=== PATIENT | male | born 1985 | race Caucasian/White ===

== ENCOUNTER 2025-05-29 09:00 | Outpatient (AMB) | payer OTHER, SELFPAY ==
--- NOTE | 2025-05-29 09:06 | MHC.PC.OV ---
Vital Signs 05/29/25 09:13 Height 5 ft 10 in Weight 176 lb 9 oz BMI 25.3 BP 114/64 Blood Pressure Location Rt brachial Position Sitting Pulse 69 Pulse Source Pulse Oximeter Temp 96.9 F Temp Source Temporal Artery Scan Pulse Oximetry (%) 98 Oxygen Delivery Method Room Air Intake Visit Reasons: DIRECTOR OF STRATEGIC INITIATIVES-PE Intake Note: Chucho presents in the office today to establish care. Allergies No Known Allergies Allergy (Verified 05/29/25 09:09) Medication List - Last Reconciled 05/29/25 by Angie Dunham PA-C No Known Home Meds Tobacco use date assessed: 05/29/25 Dental Screening Dental Screen Date: 05/29/25 Did you have a dental visit in the last 12 months?: Yes Did you have a dental problem in the last 6 months where you did not have access to dental care?: No Was dental information given to patient?: Patient has dentist HPI DIRECTOR OF STRATEGIC INITIATIVES-PE HPI Details Patient is a 40-year-old male who presents today to establish care. He does report a significant past medical history of anxiety, depression, ADHD. CV: Blood pressure today in the office is 114/64. Pysch: He states that in the past he was following with a psychologist for his anxiety, depression, ADHD, SI and irritability and was prescribed clonidine. States that the clonidine caused dry mouth a stopped taking it months ago. Denies any improvement of his symptoms with this medication. He states in childhood he was on other medications which he can not recall the name of. States in the last few years has been an increase in stress as he has 3 children under the age of 3 and work can be stressful. He also quit drinking 4-5 years ago. States that he was drinking up to 20 beers a night. He states that he does not currently have any SI and he has never act on this before but he would like treatment for his depression and anxiety. He states that he feels quick to be irritable and states that he gets angry easily and sometimes will even throw things. He just wants to feel more in control of his emotions. He has tried Adderall from his brother which was making him feel a little worse. He states that it caused him to have more energy than he already does. He states that he will go to work and then come home and want to go for a hike or do something that causes a lot of exertion. Denies any hospitalizations Derm: He does report today that he has toenail fungus that has been there for quite some time. He states that he would like to see someone about treating this. He has tried apple cider vinegar trigger, bleach and topicals without any significant improvement. [facility] Medical History (Updated 05/29/25 @ 12:04 by Angie Dunham PA-C) History of alcohol abuse Tinea versicolor Depression Anxiety Family History (Updated 05/29/25 @ 09:12 by Jayshree Ramirez MA) Father FHx: mental illness Bipolar 1 disorder Social History (Updated 05/29/25 @ 09:13 by Jayshree Ramirez MA) Housing: House Alcohol intake: former Patient Tobacco Use Status: Never used Tobacco e-Cigarette/Vaping Use: Currently Using Second Hand Smoke Exposure: No Substance Use Type: Marijuana service: No Current occupational status: employed Current occupation: IT Current occupational exposures/hazards: Yes Cognitive needs: No Hearing needs: No Vision needs: No Questionnaire PHQ-9 Over the last 2 weeks, how often have you been bothered by any of the following problems? 1. Little interest or pleasure in doing things: not at all 2. Feeling down, depressed, or hopeless: not at all 3. Trouble falling or staying asleep, or sleeping too much: not at all 4. Feeling tired or having little energy: not at all 5. Poor appetite or overeating: not at all 6. Feeling bad about yourself - or that you are a failure or have let yourself or your family down: not at all 7. Trouble concentrating on things, such as reading the newspaper or watching television: nearly every day 8. Moving or speaking so slowly that other people could have noticed. Or the opposite - being so fidgety or restless that you have been moving around a lot more than usual: nearly every day 9. Thoughts that you would be better off or of hurting yourself in some way: not at all Total score: 6 Depression Screening Interpretation: Positive Depression Screening Follow-up: Existing condition, New Medication prescribed, Community Mental Health Worker F/U and Follow-up Visit Requested Depression Screening Done: Yes 35157 - PHQ-9 Billing: Yes Source: Developed by Drs. Chris Jerry, MiryamYosvany Albright and colleagues, with an educational desmond from [employer]. Thrive Questionnaire Date Thrive assessed: 05/29/25 I am a: Patient What is your living situation today?: I have a steady place to live Within the past 12 months, did the food you bought not last and you didn't have the money to get more?: I choose not to answer this question Within the past 12 months, did you worry whether your food would run out before you got money to buy more?: Never true Do you have trouble paying for medicines?: I choose not to answer this question Do you have trouble getting transportation to medical appointments?: No Do you have trouble paying your heating and electricity bill?: I choose not to answer this question Do you have trouble taking care of your child, family member or friend?: No Do you have trouble with day-to-day activities such as bathing, preparing meals, shopping, managing finances, etc.?: No Are you currently unemployed and looking for a job?: No Are you interested in more education?: I choose not to answer this question Please select the resources that you would like help with: None Currently or been in a relationship where the following occur: No concerns reported THRIVE Score: 0 AUDIT C Alcohol Use Questionnaire (AUDIT-C) 1. How often do you have a drink containing alcohol?: Never 3. How often do you have six or more drinks on one occasion?: Never Total Score: 0 JAVON-7 AMB Questionnaire JAVON-7 Date JAVON - 7 assessed: 05/29/25 Feeling nervous, anxious, or on edge: 2 = More than half the days Not being able to stop or control worryin = Not at all Worrying too much about different things: 0 = Not at all Trouble relaxin = Nearly every day Being so restless that it is hard to sit still: 3 = Nearly every day Becoming easily annoyed or irritable: 3 = Nearly every day Feeling afraid as if something awful might happen: 2 = More than half the days Total JAVON-7 score (0-4 normal; 5-9 mild; 10-14 moderate; 15-21 severe): 13 Source: Developed by Miryam Murillo Kurt Kroenke and colleagues, with an educational desmond from [employer]. JAVON-7 Assessment Billing JAVON-7 Assessment Tool: JAVON-7 Assessment 23012 Physical exam (Primary Care) Vital Signs: Last Vital Signs Temp 96.9 F 05/29/25 09:13 Pulse 69 05/29/25 09:13 BP 114/64 05/29/25 09:13 Pulse Ox 98 05/29/25 09:13 Oxygen Delivery Method Room Air 05/29/25 09:13 BMI result Body Mass Index 25.3 Tobacco/Smoking Status: Tobacco use Status Tobacco use date assessed 05/29/25 05/29/25 09:17 Patient Tobacco Use Status Never used Tobacco 05/29/25 09:17 e-Cigarette/Vaping Use Currently Using 05/29/25 09:17 PHQ-9: PHQ-9 Score PHQ-9: Total score 6 05/29/25 09:24 Depression Screening Interpretation: Positive Depression Screening Follow-up: Existing condition, New Medication prescribed, Community Mental Health Worker F/U and Follow-up Visit Requested Thrive Assessment: Date of Thrive Assessment Date Thrive assessed 05/29/25 05/29/25 09:17 Currently or been in a relationship where the following occur: No concerns reported Const Orientation/consciousness: patient oriented x3 HENMT Ears: hearing grossly normal bilaterally Neck Thyroid: Thyroid normal Lymphatic: no lymphadenopathy noted Resp Auscultation: clear to auscultation bilaterally Cardio Rate: regular rate Rhythm: regular rhythm Heart sounds: S1 normal heart sound present and S2 normal heart sound present GI Inspection: Yes normal to inspection Palpation (GI): Soft to palpation and Other GI palpation findings present (nontender, no cva tenderness) Auscultation: normoactive bowel sounds Rectal Exam - Male: Yes deferred Skin General skin exam: no rashes or lesions noted Neuro General: patient oriented x3, gait normal and no focal motor deficits Coding Level of Care Code New Pt Level 4 (34106) Complex EM visit Add On G2211 Diagnoses Major depression, recurrent, chronic F33.9 Irritability R45.4 Generalized anxiety disorder F41.1 ADHD F90.9 Onychomycosis B35.1 Additional Codes JAVON-7 Assessment Billing - JAVON-7 Assessment Tool: JAVON-7 Assessment 61617 ([id number]) PHQ-9 - 35138 - PHQ-9 Billing: Yes ([id number]) Assessment & Plan Assessment & Plan (1) Major depression, recurrent, chronic: Code(s): F33.9 - Major depressive disorder, recurrent, unspecified Category: Medical Plan: We will try Wellbutrin. We discussed risks and benefits and adverse effects of the medications at length. Advised to seek emergent medical treatment should he develop any SI/HI. If he develops any worsening symptoms advised him to seek emergent medical treatment or contact us. I have referred him to Psychiatry and Behavioral Health. Labs have been ordered. We will follow up pending test results. (2) Irritability: Code(s): R45.4 - Irritability and anger Category: Medical Plan: As above (3) Generalized anxiety disorder: Code(s): F41.1 - Generalized anxiety disorder Category: Medical Plan: As above (4) ADHD: Code(s): F90.9 - Attention-deficit hyperactivity disorder, unspecified type Category: Medical Plan: Tried Adderall in the past with adverse effects (5) Onychomycosis: Code(s): B35.1 - Tinea unguium Category: Medical Plan: Penlac solution ordered. Referral to derm Orders: Orders Comprehensive [place]. Panel Fast Today F33.3 - Major depressive disorder, recurrent, severe with psychotic symptoms, F41.1 - Generalized anxiety disorder, F90.9 - Attention-deficit hyperactivity disorder, unspecified type, R45.4 - Irritability and anger Lipid Panel Today F33.3 - Major depressive disorder, recurrent, severe with psychotic symptoms, F41.1 - Generalized anxiety disorder, F90.9 - Attention-deficit hyperactivity disorder, unspecified type, R45.4 - Irritability and anger Vitamin B12 and Folate Today F33.3 - Major depressive disorder, recurrent, severe with psychotic symptoms, F41.1 - Generalized anxiety disorder, F90.9 - Attention-deficit hyperactivity disorder, unspecified type, R45.4 - Irritability and anger Microalbumin, Random (w Creat) Today F33.3 - Major depressive disorder, recurrent, severe with psychotic symptoms, F41.1 - Generalized anxiety disorder, F90.9 - Attention-deficit hyperactivity disorder, unspecified type, R45.4 - Irritability and anger Complete Blood Count Auto Diff Today F33.3 - Major depressive disorder, recurrent, severe with psychotic symptoms, F41.1 - Generalized anxiety disorder, F90.9 - Attention-deficit hyperactivity disorder, unspecified type, R45.4 - Irritability and anger TSH reflex Free T4 Today F33.3 - Major depressive disorder, recurrent, severe with psychotic symptoms, F41.1 - Generalized anxiety disorder, F90.9 - Attention-deficit hyperactivity disorder, unspecified type, R45.4 - Irritability and anger UA CC w/rflx Micro + Cult Today F33.3 - Major depressive disorder, recurrent, severe with psychotic symptoms, F41.1 - Generalized anxiety disorder, F90.9 - Attention-deficit hyperactivity disorder, unspecified type, R45.4 - Irritability and anger, Z13.220 - Encounter for screening for lipoid disorders Prostate Specific Antigen Scr Today Z01.89 - Encounter for other specified special examinations Referrals Behavioral Health Referral F33.3 - Major depressive disorder, recurrent, severe with psychotic symptoms, F41.1 - Generalized anxiety disorder, F90.9 - Attention-deficit hyperactivity disorder, unspecified type, R45.4 - Irritability and anger Psychiatry Referral F33.3 - Major depressive disorder, recurrent, severe with psychotic symptoms, F41.1 - Generalized anxiety disorder, F90.9 - Attention-deficit hyperactivity disorder, unspecified type, R45.4 - Irritability and anger Dermatology Referral B35.1 - Tinea unguium Medications: New ciclopirox 8% 1 appl topical BEDTIME 6.6 mL 3RF 4 weeks bupropion HCl XL (Wellbutrin XL) 150 mg PO QAM 30 tabs 3RF
[2025-05-29 09:13] VITALS: BP 114/64; PULSE 69; TEMP 36.1; O2SAT 98; BMI 25.3
--- OUTSIDE RECORDS SUMMARY | 2025-05-29 09:22 | XMS_ITS ---
Author Name [facility] Organization Unknown Care Team Organization Name Specialty Phone Email Start Date End Da te [facility] SHAWNA DEWEY Primary Care 08/24/2022 06/04/2024
--- OUTSIDE RECORDS SUMMARY | 2025-05-29 09:22 | XMS_ITS | Clinical Summary ---
Author Organization [facility] Address [address] [place], [place] [id number] Phone Care Team Providers Care Vehicle Service Attendant Name Role Phone Pcp, Unknown Primary Care Provider Unavailabl e Allergies No known active allergies Medications No known medications Active Problems No known active problems Immunizations Immunization Administration Dates Next Due Influenza Quadrivalent Preservative Free IM 02/2021,09/24/2020 MMR 05/10/2016,04/08/2016 Tdap 04/06/2016 Social History Tobacco Use Types Packs/Day Years [...] on file Sexual Orientation Not on file Last Filed Vital Signs Vital Sign Reading Time Taken Comments Blood Pressure 101/68 12/13/2022 10:23 AM EST Pulse 82 12/13/2022 10:23 AM EST Temperature 36.5 C (97.7 F) 12/13/2022 10:23 AM EST Respiratory Rate 20 12/13/2022 10:23 AM EST Oxygen Saturation 100% 12/13/2022 10:23 AM EST Inhaled Oxygen Concentration - - Weight 69.4 kg (153 lb) 12/13/2022 10:23 AM EST Height 177.8 cm (5' 10 ) 12/13/2022 10:23 AM EST Body Mass Index 21.95 12/13/2022 10:23 AM EST Plan of Treatment Health Maintenance Due Date Last Done Comments LIPID PANEL 1985 DEPRESSION SCREENING 1997 SMOKING Hx and SMOKELESS TOBACCO SCREENING 1998 HEPATITIS C SCREENING 2003 HIV ONE-TIME SCREENING (18-6 5 YEARS) 2003 COVID-19 VACCINE (3 - 2023-2 5 season) 2024 05/26/2021, 05/01/2021 Adult Td,Tdap Booster 04/06/2026 04/06/2016 HEPATITIS A VACCINES Aged Out No long er eligible based on patient's age to complete this topic HIB VACCINES Aged Out No longer eligi ble based on patient's age to complete this topic MENINGOCOCCAL VACCINES (ACWY) Aged Out No longer eligible based on patient's age to complete this topic MENINGOCOCCAL VACCINES (B) Aged Out N o longer eligible based on patient's age to complete this topic PNEUMOCOCCAL VACCINES (0-49 years) Aged Out No longer eligible b ased on patient's age to complete this topic Medical Devices Not on file [facility] [place] [address] [address] HMO POS HMO POS [facility] Care Teams Vehicle Service Attendant Relationship Specialty Start Date End Date Pcp, Unknown PCP - General 12/13/22 Additional Source Comments The information contained in this document represents components of the legal health record. It is not the complete legal health record.[facility]
== END 2025-05-29 09:46 | disposition home or self-care (01) ==
LOC: HO.HMCFM 09:01
PROVIDERS: PCP Physician Assistant; Visit Provider Physician Assistant
DX: F33.9 Major depressive disorder, recurrent, unspecified (principal); R45.4 Irritability and anger; F41.1 Generalized anxiety disorder; F90.9 Attention-deficit hyperactivity disorder, unspecified type; B35.1 Tinea unguium

== ENCOUNTER → 2025-05-29 09:00 | Outpatient (BNVA) | payer OTHER, SELFPAY | PROVIDERS: PCP Physician Assistant; Visit Provider Physician Assistant | DX: R45.4 Irritability and anger (principal); F41.9 Anxiety disorder, unspecified; F90.9 Attention-deficit hyperactivity disorder, unspecified type; F33.9 Major depressive disorder, recurrent, unspecified; F41.1 Generalized anxiety disorder; B35.1 Tinea unguium | CPT/HCPCS: 96127 ==

== ENCOUNTER 2025-06-10 13:20 | Outpatient (REF) | payer OTHER, SELFPAY ==
--- OUTSIDE RECORDS SUMMARY | 2022-12-13 11:42 | XMS_ITS | Encounter Summary ---
Author Organization [facility] Address [address] [facility] [address] [place] [phone] Phone Care Team Providers Care Health Safety Manager Name Role Phone Pcp, Unknown Primary Care Provider Unavailabl e Encounter Details Date Type Department Care Team (Late st Contact Info) Description 12/13/2022 10:42 AM EST Hospital Encounter [facility] [address] [place] [address] [phone] Jaspreet Jimenez PA [address] [place] [address] [phone] [email or web address] Social History Tobacco Use Types Packs/Day Years Used Date Smoking Tobacco: Former Cigarettes Passive Smoke Exposure: Never Smokeless Tobacco: Current Education Answer Date Recorded Are you interested in more education? Not on joey e 02/12/2023 Are you concerned about learning? Not on file 02/12/2023 No 02/12/2023 No 02/12/2023 Digital Access Answer Date Recorded No 03/13/2023 No 03/13/2023 No 03/13/2023 Reliable internet access at home? Not on file 03/13/2023 Device with a working camera? Not on file Sex and Gender Information Value Date Recorded Sex Assigned at Not on file Legal Sex Male 9:55 AM EST Gender Identity Not on file Sexual Orientation Not on file documented as of this encounter Plan of Treatment Not on file documented as of this encounter Procedures Procedure Name Priority Date/Time Associated Diagnosis Comments XR CHEST PA AND LATERAL 2 VIEWS Urgent/patient waiting 12/13/2022 10:47 AM EST Cough, unspecified type documented in this encounter Results * XR CHEST PA AND LATERAL 2 VIEWS (12/13/2022 10:47 AM EST) Anatomical Region Laterality Modality Chest Computed Radiogr aphy 12/13/2022 11:0 5 AM EST Impressions 12/13/2022 11:05 AM EST Normal chest. Narrative 12/13/2022 11:05 AM EST XR CHEST PA AND LATERAL 2 VIEWS COMPARISON: None. FINDINGS: Devices/Tubes/Lines: None. Lungs: Normal. The lungs are clear. No focal consolidation or pulmonary edema. Pleura: Normal. No pleural effusion or pneumothorax. Heart/Mediastinum: Normal heart and mediastinum. Bones/Soft Tissues: Normal. No significant skeletal abnormality. Procedure Note Bianca Barber MD - 12/13/2022 XR CHEST PA AND LATERAL 2 VIEWS COMPARISON: None. FINDINGS: Devices/Tubes/Lines: None. Lungs: Normal. The lungs are clear. No focal consolidation or pulmonaryedema. Pleura: Normal. No pleural effusion or pneumothorax. Heart/Mediastinum: Normal heart and mediastinum. Bones/Soft Tissues: Normal. No significant skeletal abnormality. IMPRESSION: Normal chest. Jaspreet PICHARDO IMG XR CHEST Final Result documented in this encounter Visit Diagnoses Not on filedocumented in this encounter Care Teams Health Safety Manager Relationship Specialty Start Date End Date Pcp, Unknown PCP - General 12/13/22 documented as of this encounter Additional Source Comments The information contained in this document represents components of the legal health record. It is not the complete legal health record.[facility]
--- OUTSIDE RECORDS SUMMARY | 2025-06-10 14:43 | XMS_ITS | Clinical Summary ---
Author Organization [facility] Address [address] [place], [place] [phone] Phone Care Team Providers Care Family Member Caretaker Name Role Phone Pcp, Unknown Primary Care [...] Devices Not on file Insurance O [facility] [place] [address] [place] [address] HMO POS HMO POS [facility] Care Teams Family Member Caretaker Relationship Specialty Start Date End Date Pcp, Unknown PCP - General 12/13/22 Additional Source Comments The information contained in this document represents components of the legal health record. It is not the complete legal health record.[facility]
[2025-06-10 17:28] LABS: MANUAL DIFF FLAG NO
[2025-06-10 17:31] LABS: Hematocrit 40.6 % (42.0-52.0); Hemoglobin 14.4 g/dl (14.0-18.0); Imm Gran Abs Auto 0.01 X10*3/uL (0.00-0.03); Imm Gran Pct Auto 0.2 % (0.0-0.4); Lymphocytes Absolute Auto 1.1 X10*3/uL (1.2-4.9); Mean Corpuscular HGB Conc 35.5 g/dl (31.0-36.0); Mean Corpuscular Hemoglobin 28.8 pg (27.0-33.0); Mean Corpuscular Volume 81.2 fL (80.0-98.0); NRBC Abs Auto 0.000 X10*3/uL (0.0-0.012); NRBC Pct Auto 0.0 /100WBC (0.0-0.2); Platelet Count 151 X10*3/uL (160-400); Red Blood Count 5.00 X10*6/uL (4.60-5.80); White Blood Count 4.2 X10*3/uL (4.8-10.8)
[2025-06-10 17:53] LABS: Appearance Urine Clear; Glucose Urine UA Negative (Negative); PH 5.5 (5.0-9.0); Specific Gravity - Urine 1.025 (1.005-1.025)
[2025-06-10 17:54] LABS: Alanine Aminotransferase 30 U/L (0-40); Albumin Level 4.8 g/dL (3.5-5.0); Alkaline Phosphatase 42 U/L (39-117); Anion Gap 12 (12-20); Aspartate Amino Transferase 38 U/L (5-37); Blood Urea Nitrogen 21 mg/dL (9-16); Calcium 9.2 mg/dL (8.4-10.2); Carbon Dioxide 21 mmol/L (22-29); Chloride 111 mmol/L (96-108); Cholesterol 164 mg/dL (<200); Estimated Glomerular Filt Rate > 60; HDL Cholesterol 47 mg/dL (>40); Potassium 3.9 mmol/L (3.3-5.1); Sodium 140 mmol/L (135-145); Total Protein 7.1 g/dL (6.5-8.0); Triglycerides 49 mg/dL (<150)
[2025-06-10 18:18] LABS: Folate 11.1 ng/mL (> or = 4.0); Vitamin B12 457 pg/mL (200-900)
[2025-06-10 18:30] LABS: Microalbum/Creatinine Ratio Ur 3.3 ug/mg cr (<30)
== END 2025-06-10 13:21 | disposition home or self-care (01) ==
LOC: HO.WFDLDS 13:20
PROVIDERS: Visit Provider Physician Assistant
DX: Z13.220 Encounter for screening for lipoid disorders (principal); Z12.5 Encounter for screening for malignant neoplasm of prostate; Z01.89 Encounter for other specified special examinations; Z13.6 Encounter for screening for cardiovascular disorders; F33.3 Major depressive disorder, recurrent, severe with psychotic symptoms; R45.4 Irritability and anger; F41.1 Generalized anxiety disorder; F90.9 Attention-deficit hyperactivity disorder, unspecified type
CPT/HCPCS: 36415; 80053; 80061; 81003; 82043; 82570; 82607; 82746; 84153; 84443; 85025

== ENCOUNTER 2025-07-10 13:42 | Outpatient (REF) | payer OTHER, SELFPAY ==
[2025-07-10 18:22] LABS: MANUAL DIFF FLAG NO
[2025-07-10 18:28] LABS: Hematocrit 37.5 % (42.0-52.0); Hemoglobin 13.3 g/dl (14.0-18.0); Imm Gran Abs Auto 0.01 X10*3/uL (0.00-0.03); Imm Gran Pct Auto 0.2 % (0.0-0.4); Lymphocytes Absolute Auto 1.3 X10*3/uL (1.2-4.9); Mean Corpuscular HGB Conc 35.5 g/dl (31.0-36.0); Mean Corpuscular Hemoglobin 29.0 pg (27.0-33.0); Mean Corpuscular Volume 81.7 fL (80.0-98.0); NRBC Abs Auto 0.000 X10*3/uL (0.0-0.012); NRBC Pct Auto 0.0 /100WBC (0.0-0.2); Platelet Count 197 X10*3/uL (160-400); Red Blood Count 4.59 X10*6/uL (4.60-5.80); White Blood Count 4.4 X10*3/uL (4.8-10.8)
[2025-07-10 19:08] LABS: Alanine Aminotransferase 28 U/L (0-40); Albumin Level 4.7 g/dL (3.5-5.0); Alkaline Phosphatase 49 U/L (39-117); Aspartate Amino Transferase 33 U/L (5-37); Ferritin 326 ng/mL (20-250); Iron 66 mcg/dL (45-160); Percent Iron Saturation 30 % (15-50); Total Iron Binding Capacity 223 mcg/dL (228-428); Total Protein 7.1 g/dL (6.5-8.0); Unsaturated Iron Binding 157 ug/dL
== END 2025-07-10 13:43 | disposition home or self-care (01) ==
LOC: HO.WFDLDS 13:42
PROVIDERS: PCP Physician Assistant; Visit Provider Physician Assistant
DX: R79.89 Other specified abnormal findings of blood chemistry (principal); R10.11 Right upper quadrant pain; K64.4 Residual hemorrhoidal skin tags; F33.9 Major depressive disorder, recurrent, unspecified; F41.1 Generalized anxiety disorder
CPT/HCPCS: 36415; 80076; 82728; 83540; 85025

== ENCOUNTER 2025-07-10 13:42 | Outpatient (AMB) | payer OTHER, SELFPAY ==
--- OUTSIDE RECORDS SUMMARY | 2022-12-13 11:42 | XMS_ITS | Encounter Summary ---
Author Organization [facility] Address [address] [facility] [address] [place] [phone] Phone Care Team Providers Care Contract Designer Name Role Phone Pcp, Unknown Primary Care Provider Unavailabl e Encounter Details Date Type Department Care Team (Late st Contact Info) Description 12/13/2022 10:42 AM EST Hospital Encounter [facility] [address] [place] [address] [phone] Jaspreet Jimenez PA [address] [place] [address] [phone] [email or web address] Social History Tobacco Use Types Packs/Day Years [...] on filedocumented in this encounter Care Teams Contract Designer Relationship Specialty Start Date End Date Pcp, Unknown PCP - General 12/13/22 documented as of this encounter Additional Source Comments The information contained in this document represents components of the legal health record. It is not the complete legal health record.[facility]
--- NOTE | 2025-07-10 13:49 | A.OFFPC_ITS ---
Vital Signs 07/10/25 13:50 Height 5 ft 10 in Weight 170 lb 8 oz BMI 24.5 BP 94/64 Blood Pressure Location Rt brachial Position Sitting Respiration 12 Pulse 67 Pulse Source Pulse Oximeter Temp 98.4 F Temp Source Oral Pulse Oximetry (%) 97 Oxygen Delivery Method Room Air Intake Visit Reasons: med check labs Intake Note: Medication follow up. Didn't get recheck labs done yet. Requesting ketoconazole refill, pt unsure of strength. GI referral for hemorrhoids. 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 He does report a significant past medical history of anxiety, depression, ADHD. CV: Blood pressure today in the office is 94/64 Pysch: He states that in the past he was following with a psychologist for his anxiety, depression, ADHD, SI and irritability and was prescribed clonidine. States that the clonidine caused dry mouth a stopped taking it months ago. In the past tried Adderall put it made him feel worse. At our last visit I tried him on Wellbutrin which she has noticed helps treat some of the depression symptoms but it has not helped at all with his irritability. He denies any SI/HI. GI: States that he gets intermittent flare-ups of hemorrhoids. He would like to see a colorectal surgeon for possible removal of this. It is not currently flared. Denies any abdominal pain or rectal pain. He states when it is flared up he does have rectal irritation and itching. At times he will get blood as well but states he knows as directly related to the hemorrhoid. Denies any family history of colorectal cancer. He does sometimes get right upper quadrant pain with exercise. No shortness on breath or chest pain. [facility] Medical History (Updated 07/10/25 @ 14:17 by Angei Dunham PA-C) History of alcohol abuse Tinea versicolor Depression Anxiety Family History (Updated 05/29/25 @ 09:12 by Jayshree Ramirez MA) Father FHx: mental illness Bipolar 1 disorder Social History (Updated 05/29/25 @ 09:13 by Jayshree Ramirez MA) Housing: House Alcohol intake: former Patient Tobacco Use Status: Former Tobacco user Cigarette Packs Per Day: 0.5 Years Smoked: 20 e-Cigarette/Vaping Use: Currently Using Second Hand Smoke Exposure: No Substance Use Type: Marijuana service: No Current occupational status: employed Current occupation: IT Current occupational exposures/hazards: Yes Cognitive needs: No Hearing needs: No Vision needs: No Questionnaire Thrive Questionnaire Date Thrive assessed: 05/29/25 I am a: Patient What is your living situation today?: I have a steady place to live Within the past 12 months, did the food you bought not last and you didn't have the money to get more?: I choose not to answer this question Within the past 12 months, did you worry whether your food would run out before you got money to buy more?: Never true Do you have trouble paying for medicines?: I choose not to answer this question Do you have trouble getting transportation to medical appointments?: No Do you have trouble paying your heating and electricity bill?: I choose not to answer this question Do you have trouble taking care of your child, family member or friend?: No Do you have trouble with day-to-day activities such as bathing, preparing meals, shopping, managing finances, etc.?: No Are you currently unemployed and looking for a job?: No Are you interested in more education?: I choose not to answer this question Please select the resources that you would like help with: None Currently or been in a relationship where the following occur: No concerns reported THRIVE Score: 0 AUDIT C Alcohol Use Questionnaire (AUDIT-C) 1. How often do you have a drink containing alcohol?: Never 3. How often do you have six or more drinks on one occasion?: Never Total Score: 0 JAVON-7 AMB Questionnaire JAVON-7 Date JAVON - 7 assessed: 05/29/25 Source: Developed by Drs. Chris Jerry, Miryam Scott, Yosvany Gallardo and colleagues, with an educational desmond from [employer]. Physical exam (Primary Care) Vital Signs: Last Vital Signs Temp 98.4 F 07/10/25 13:50 Pulse 67 07/10/25 13:50 Resp 12 07/10/25 13:50 BP 94/64 07/10/25 13:50 Pulse Ox 97 07/10/25 13:50 Oxygen Delivery Method Room Air 07/10/25 13:50 BMI result Body Mass Index 24.5 Tobacco/Smoking Status: Tobacco use Status Tobacco use date assessed 07/10/25 07/10/25 13:55 Patient Tobacco Use Status Former Tobacco user 07/10/25 13:55 e-Cigarette/Vaping Use Currently Using 07/10/25 13:50 Thrive Assessment: Date of Thrive Assessment Date Thrive assessed 05/29/25 07/10/25 13:50 Currently or been in a relationship where the following occur: No concerns reported Const Orientation/consciousness: patient oriented x3 HENMT Ears: hearing grossly normal bilaterally Neck Thyroid: Thyroid normal Lymphatic: no lymphadenopathy noted Resp Auscultation: clear to auscultation bilaterally Cardio Rate: regular rate Rhythm: regular rhythm Heart sounds: S1 normal heart sound present and S2 normal heart sound present GI Other: Refused rectal exam. Inspection: Yes normal to inspection Palpation (GI): Soft to palpation and Other GI palpation findings present (nontender, no cva tenderness) Auscultation: normoactive bowel sounds Skin General skin exam: no rashes or lesions noted Neuro General: patient oriented x3, gait normal and no focal motor deficits Results Reviewed Results Reviewed: Laboratory Tests 06/10/25 06/10/25 13:20 13:27 WBC 4.2 L RBC 5.00 Hgb 14.4 Hct 40.6 L Plt Count 151 L Sodium 140 Potassium 3.9 Chloride 111 H Carbon Dioxide 21 L Anion Gap 12 BUN 21 H Creatinine 1.05 Estimated GFR > 60 Fasting Glucose 87 AST 38 H ALT 30 Coding Level of Care Code Est Pt Level 4 (18216) Complex EM visit Add On G2211 Diagnoses RUQ abdominal pain R10.11 Elevated LFTs R79.89 External hemorrhoids K64.4 Major depression, recurrent, chronic F33.9 Generalized anxiety disorder F41.1 Assessment & Plan Assessment & Plan (1) RUQ abdominal pain: Code(s): R10.11 - Right upper quadrant pain Category: Medical Plan: Ultrasound ordered (2) Elevated LFTs: Code(s): R79.89 - Other specified abnormal findings of blood chemistry Category: Medical Plan: As above. We will recheck labs. He also did have COVID the same week that he got labs. (3) External hemorrhoids: Code(s): K64.4 - Residual hemorrhoidal skin tags Category: Medical Plan: Refused visualization/exam. States that he only wanted a referral. I did put in the referral today. He will let me know if anything changes or worsens. (4) Major depression, recurrent, chronic: Code(s): F33.9 - Major depressive disorder, recurrent, unspecified Category: Medical Plan: We will try Zoloft. Discussed risks and benefits and adverse effects of this medication. He will seek emergent medical treatment should he develop any SI/HI. He will contact me sooner if anything worsens or changes but we will do a short term follow up. (5) Generalized anxiety disorder: Code(s): F41.1 - Generalized anxiety disorder Category: Medical Plan: As above Orders: Orders US abdomen complete 07/10/25 R10.11 - Right upper quadrant pain, R79.89 - Other specified abnormal findings of blood chemistry Referrals Colon & Rectal Referral K64.4 - Residual hemorrhoidal skin tags Medications: New hydrocortisone acetate (Anusol-HC) 25 mg NH BID PRN 100 ea 0RF hemorrhoids sertraline (Zoloft) 25 mg PO DAILY 90 tabs 0RF Discontinued bupropion HCl XL (Wellbutrin XL) Discontinued Reason: Doctor's Order 150 mg PO QAM 30 tabs 3RF Patient Instructions: get labs someone will call you for the u/s of the abdomen colorectal surgery referral was sent to [facility]--if you do not hear call us or them start zoloft and let me know how you do, short term follow up hemorrhoid treatment sent to pharmacy
[2025-07-10 13:50] VITALS: BP 94/64; PULSE 67; RESP 12; TEMP 36.9; O2SAT 97; BMI 24.5
--- OUTSIDE RECORDS SUMMARY | 2025-07-10 16:08 | XMS_ITS | Clinical Summary ---
Author Organization [facility] Address [address] [place], [place] [id number] Phone Care Team Providers Care [employer] Gauger Name Role Phone Pcp, Unknown Primary Care [...] HIV ONE-TIME SCREENING (18-6 5 YEARS) 2003 INFLUENZA VACCINE (#1) 2025 , 09/24/2020 COVID-19 VACCINE (3 2024-2 6 season) 2025 05/26/2021, 05/01/2021 Adult Td,Tdap Booster 04/06/2026 04/06/2016 [...] topic Medical Devices Not on file Insurance [facility] HMO [place] [address] [place] [address] HMO POS [employer] [facility] HMO POS [facility] HMO POS O POS Care Teams [employer] G[employer]er Relationship Specialty Start Date End Date Pcp, Unknown PCP - General 12/13/22 Additional Source Comments The information contained in this document represents components of the legal health record. It is not the complete legal health record[facility]
== END 2025-07-10 14:26 | disposition home or self-care (01) ==
LOC: HO.HMCFM 13:43
PROVIDERS: PCP Physician Assistant; Visit Provider Physician Assistant
DX: R10.11 Right upper quadrant pain (principal); R79.89 Other specified abnormal findings of blood chemistry; K64.4 Residual hemorrhoidal skin tags; F33.9 Major depressive disorder, recurrent, unspecified; F41.1 Generalized anxiety disorder